=== PATIENT | male | born 1935 | race Caucasian/White ===

== ENCOUNTER 2019-03-19 10:31 | Day surgery (SDC) | payer MEDICARE, OTHER ==
[~2019-03-19 10:31] MED LIST: CHONDR SU A NA/HYALUR INTRAOC KIT (SURGICARE) ONE; DORZOLAMIDE HCL 2%/TIMOLOL MALEAT 0.5% OPH SOLN 10 ML OD PRN; EPINEPHRINE INJ/PF 1 MG/1 ML AMPULE ONE; FENTANYL CITRATE INJ/PF 100 MCG/2 ML AMPUL ONE; KETOROLAC TROMETHAMINE 0.45% 4 DROP/0.4 ML DROPERETTE OD PRN; LIDOCAINE 1%/PHENYLEPHRINE 1.5% 1 ML VIAL ONE; MIDAZOLAM 2 MG/2 ML INJ ONE; ONDANSETRON HCL INJ/PF 4 MG/2 ML SDV ONE
[2019-03-19] MEDS: TROPICAMIDE 1% OPH SOLN 15 ML OD PRN ×3 (12:05→12:30)
[2019-03-19] MEDS: TETRACAINE HCL 0.5% OPH SOLN 4 ML OD PRN ×3 (12:05→12:39)
[2019-03-19] MEDS: CYCLOPENTOLATE 0.2%/PHENYLEPHRINE 1% OPH SOLN 2 ML OD PRN ×3 (12:05→12:30)
[2019-03-19] MEDS: BESIFLOXACIN HCL 0.6% OPH SUSP 5 ML BOTTLE OD PRN ×3 (12:05→13:04)
--- NOTE | 2019-03-19 16:20 | Operative Report ---
Operative Report-[facility] Operative Report: DATE OF SURGERY: 03/19/2019 PREOPERATIVE DIAGNOSIS: Cataract, right eye, Pupil Miosis POSTOPERATIVE DIAGNOSIS: Cataract, right eye, Pupil miosis OPERATION: Complex Cataract extraction with insertion of an IOL of the right eye and use of a maluygan ring due to pupil dilation of less than 4mm. Intraocular Lens Model: [18.5 sn60wf] Reason for surgery was difficulty seeing small print SURGEON: Miguel Cunningham MD ANESTHESIA: Topical PROCEDURE: After obtaining appropriate consent, the patient's right eye was prepped and draped in a sterile fashion as well as the surgeon in the sterile manner and cataract surgery was started. First a paracentesis blade was used to make a side-port incision. Viscoelastic was used to inflate the anterior chamber. Next a 2.4 mm incision was made with a 2.4 mm blade, clear corneal temporarily. A continuous capsulorrhexis was made using a cystotome and Utrata forceps. Following this hydrodissection was carried out to make the lens fully loose and mobile and it was rotated freely. Following this, a divide and conquer technique was used to phacoemulsify the lens. The remaining cortex was removed with an irrigation/aspiration. Provisc was instilled into the capsular bag to inflate the bag. The intraocular lens was placed. The remaining viscoelastic material was removed with irrigation/aspiration. Following this, the incision was found to be watertight. Prior to making the capsulorhexis a maluygan ring was inserted due to poor pupillary dilation. This was removed at the end of the case. Besivance and Cosopt was instilled into the eye and a protective shield was placed over the eye. The patient was returned to the postoperative recovery in a stable condition.
== END 2019-03-19 13:53 | disposition home or self-care (01) ==
LOC: SC 10:31
PROVIDERS: ATTEND Internal Medicine
DX: H25.11 Age-related nuclear cataract, right eye (principal); H57.03 Miosis; I10 Essential (primary) hypertension; Z79.899 Other long term (current) drug therapy; E07.9 Disorder of thyroid, unspecified; Z79.82 Long term (current) use of aspirin
CPT/HCPCS: 66982; J2250; J3490 ×2; A9270; J0171; J3010; J2405; J2370; V2632

== ENCOUNTER 2019-04-19 06:39 | Day surgery (SDC) | payer MEDICARE, OTHER ==
[~2019-04-19 06:39] MED LIST changes: -CHONDR SU A NA/HYALUR INTRAOC KIT (SURGICARE) ONE; -DORZOLAMIDE HCL 2%/TIMOLOL MALEAT 0.5% OPH SOLN 10 ML OD PRN; -EPINEPHRINE INJ/PF 1 MG/1 ML AMPULE ONE; -FENTANYL CITRATE INJ/PF 100 MCG/2 ML AMPUL ONE; -KETOROLAC TROMETHAMINE 0.45% 4 DROP/0.4 ML DROPERETTE OD PRN; +KETOROLAC TROMETHAMINE 0.45% 4 DROP/0.4 ML DROPERETTE OS PRN; -LIDOCAINE 1%/PHENYLEPHRINE 1.5% 1 ML VIAL ONE; -MIDAZOLAM 2 MG/2 ML INJ ONE; -ONDANSETRON HCL INJ/PF 4 MG/2 ML SDV ONE
[2019-04-19] MEDS ORDERED: MIDAZOLAM 2 MG/2 ML INJ ONE (06:53)
[2019-04-19] MEDS ORDERED: FENTANYL CITRATE INJ/PF 100 MCG/2 ML AMPUL ONE (06:53)
[2019-04-19] MEDS: TETRACAINE HCL 0.5% OPH SOLN 4 ML OS PRN ×4 (06:58→07:51)
[2019-04-19] MEDS: CYCLOPENTOLATE 0.2%/PHENYLEPHRINE 1% OPH SOLN 2 ML OS PRN ×3 (06:59→07:25)
[2019-04-19] MEDS: BESIFLOXACIN HCL 0.6% OPH SUSP 5 ML BOTTLE OS PRN ×4 (06:59→08:16)
[2019-04-19] MEDS: TROPICAMIDE 1% OPH SOLN 15 ML OS PRN ×3 (06:59→07:25)
[2019-04-19] MEDS: EPINEPHRINE INJ/PF 1 MG/1 ML AMPULE ONE ×2 (07:59)
[2019-04-19] MEDS: LIDOCAINE 1%/PHENYLEPHRINE 1.5% 1 ML VIAL ONE ×2 (07:59)
[2019-04-19] MEDS: CHONDR SU A NA/HYALUR INTRAOC KIT (SURGICARE) ONE ×2 (07:59)
[2019-04-19] MEDS: DORZOLAMIDE HCL 2%/TIMOLOL MALEAT 0.5% OPH SOLN 10 ML OS PRN ×2 (08:16)
--- NOTE | 2019-04-19 15:58 | Operative Report ---
Operative Report-[facility] Operative Report: DATE OF SURGERY: 04/19/2019 PREOPERATIVE DIAGNOSIS: Cataract, left eye, Pupil Miosis POSTOPERATIVE DIAGNOSIS: Cataract, left eye, Pupil miosis OPERATION: Complex Cataract extraction with insertion of an IOL of the left eye and use of a maluygan ring due to pupil dilation of less than 4mm. Intraocular Lens Model: [19.0 sn60wf] Reason for surgery was difficulty with glare at night SURGEON: Miguel Cunningham MD ANESTHESIA: Topical PROCEDURE: After obtaining appropriate consent, the patient's left eye was prepped and draped in a sterile fashion as well as the surgeon in the sterile manner and cataract surgery was started. First a paracentesis blade was used to make a side-port incision. Viscoelastic was used to inflate the anterior chamber. Next a 2.4 mm incision was made with a 2.4 mm blade, clear corneal temporarily. A continuous capsulorrhexis was made using a cystotome and Utrata forceps. Following this hydrodissection was carried out to make the lens fully loose and mobile and it was rotated freely. Following this, a divide and conquer technique was used to phacoemulsify the lens.. The remaining cortex was removed with an irrigation/aspiration. Provisc was instilled into the capsular bag to inflate the bag. The intraocular lens was placed. The remaining viscoelastic material was removed with irrigation/aspiration. Following this, the incision was found to be watertight. Prior to making the capsulorhexis a maluygan ring was inserted due to poor pupillary dilation. This was removed at the end of the case. Besivance and Cosopt was instilled into the eye and a protective shield was placed over the eye. The patient was returned to the postoperative recovery in a stable condition.
== END 2019-04-19 08:58 | disposition home or self-care (01) ==
LOC: SC 06:39
PROVIDERS: ATTEND Internal Medicine
DX: H25.12 Age-related nuclear cataract, left eye (principal); H57.03 Miosis; Z96.1 Presence of intraocular lens; I10 Essential (primary) hypertension; E07.9 Disorder of thyroid, unspecified; Z79.899 Other long term (current) drug therapy; Z79.82 Long term (current) use of aspirin; I49.9 Cardiac arrhythmia, unspecified
CPT/HCPCS: 66982; V2632; J2250; J3490 ×2; A9270; J0171; J3010; J2370; 142